=== PATIENT | female | born 1990 | race Caucasian/White ===

== ENCOUNTER 2016-08-09 18:25 | Emergency (ER) | payer OTHER ==
[2016-08-09 18:32] VITALS: TEMP 97.8; BMI 22.8
[2016-08-09] MEDS ORDERED: methylPREDNISolone NA SUCC 125 MG/2 ML VIAL ONE (18:35)
[2016-08-09] MEDS ORDERED: FAMOTIDINE 20 MG/50 ML IVPB 50 ML IVPB ONE ×2 (18:35→18:49)
[2016-08-09] MEDS ORDERED: ALBUTEROL SO4 2.5/IPRATROPIUM 0.5 INH SOL 3 ML VIAL.NEB. NEB ONE (18:39)
[2016-08-09] MEDS ORDERED: EPINEPHrine/PF 1 MG/1 ML (1:1,000) AMPULE ONE ×2 (18:40→19:34)
[2016-08-09] MEDS ORDERED: methylPREDNISolone NA SUCC 125 MG/2 ML VIAL IVPB ONE (18:48)
[2016-08-09] MEDS ORDERED: EPINEPHrine/PF 1 MG/1 ML (1:1,000) AMPULE SQ ONE ×2 (18:50→19:37)
--- NOTE | 2016-08-09 21:27 | PDOC ---
History of Present Illness <Kristan Mosher - Last Filed: 08/09/16 21:49> - History of Present Illness Initial Comments: 08/09/16 23:00 The patient is a 25 year old female, with a significant past medical history of asthma, UTI, and kidney stones, who presents to the emergency department with throat irritation, swollen eyes, and diffuse itchiness starting at 6PM tonight. The patient states she had an allergy test done and was found to be allergic to tomatoes. She reports eating pasta at a restaurant and hour before her symptoms began, but was unaware if it contained tomatoes. She reports having an epipen at home, however, it was not on her person when the symptoms progressed so she presents to the ED. She reports having throat irritation and difficulty swallowing at this time. She presents with diffuse hives. She states her last episode with her allergy was about a year ago. She denies chest pain, shortness of breath, headache and dizziness. She denies fever, chills, nausea, vomit, diarrhea and constipation. She denies dysuria, frequency, urgency and hematuria. Allergies: tomatoes Past surgical history: , laproscopic ovarian cyst, D&C Social history: denies toxic habits PCP - Dr. Kenyon Wright ([phone]) <Rain Hernandez - Last Filed: 08/09/16 23:02> - General Chief Complaint: Allergic Reaction Stated Complaint: ALLERGIC REACTION Time Seen by Provider: 08/09/16 18:48 Past History - Past Medical History Asthma: Yes - Surgical History Abdominal Surgery: Yes - Reproductive History (#): 2 Para: 1 Cervical CA: No Dysfunctional Uterine Bleeding: No Ectopic : No Endometrial CA: No Polycystic Ovaries: No Therapeutic (s) & number: No Tubal Ligation: No Spontaneous : 1 - Immunization History Immunization Up to Date: Yes - Psycho/Social/Smoking Cessation Hx Anxiety: No Suicidal Ideation: No Smoking Status: No Smoking History: Never smoked Have you smoked in the past 12 months: No Number of Cigarettes Smoked Daily: 0 Cigars Per Day: 0 Information on smoking cessation initiated: No Hx Alcohol Use: No Drug/Substance Use Hx: No Substance Use Type: None <Kristan Mosher - Last Filed: 08/09/16 21:49> <Rain Hernandez - Last Filed: 08/09/16 23:02> - Past Medical History Allergies/Adverse Reactions: Allergies Allergy/AdvReac Type Severity Reaction Status Date / Time tomato Allergy Verified 08/09/16 18:27 Home Medications: Ambulatory Orders Topiramate [Topamax] 75 mg PO BID 12/19/15 Diphenhydramine HCl [Benadryl -] 25 mg PO Q6H PRN #20 capsule 08/09/16 Epinephrine [Epipen 2-Indra] 0.3 mg IJ ASDIR #1 kit 08/09/16 Prednisone [Deltasone -] 10 mg PO DAILY #3 tablet 08/09/16 Review of Systems - Review of Systems Able to Perform ROS?: Yes Comments:: 08/09/16 23:00 CONSTITUTIONAL: Absent: fever, chills, diaphoresis, generalized weakness, malaise, loss of appetite HEENT: (+) throat irritation, difficulty swallowing. Absent: rhinorrhea, nasal congestion, throat swelling, mouth swelling, ear pain, eye pain, visual Changes CARDIOVASCULAR: Absent: chest pain, syncope, palpitations, irregular heart rate, lightheadedness , peripheral edema RESPIRATORY: Absent: cough, shortness of breath, dyspnea with exertion, orthopnea, wheezing, stridor, hemoptysis GASTROINTESTINAL: Absent: abdominal pain, abdominal distension, nausea, vomiting, diarrhea, constipation, melena, hematochezia GENITOURINARY: Absent: dysuria, frequency, urgency, hesitancy, hematuria, flank pain, genital pain MUSCULOSKELETAL: Absent: myalgia, arthralgia, joint swelling SKIN: (+) rash, itching, Absent: pallor HEMATOLOGIC/IMMUNOLOGIC: Absent: easy bleeding, easy bruising, lymphadenopathy, frequent infections ENDOCRINE: Absent: unexplained weight gain, unexplained weight loss, heat intolerance, cold intolerance NEUROLOGIC: Absent: headache, focal weakness or paresthesias, dizziness, unsteady gait, seizure, mental status changes, bladder or bowel incontinence PSYCHIATRIC: Absent: anxiety, depression, suicidal or homicidal ideation, hallucinations. <Rain Hernandez - Last Filed: 08/09/16 23:02> *Physical Exam - Vital Signs Last Vital Signs Temp Pulse Resp BP Pulse Ox 97.8 F 109 H 18 112/67 100 08/09/16 18:28 08/09/16 19:25 08/09/16 19:25 08/09/16 19:25 08/09/16 19:25 <Kristan Mosher - Last Filed: 08/09/16 21:49> - Vital Signs Last Vital Signs Temp Pulse Resp BP Pulse Ox 97.8 F 113 H 18 119/66 98 08/09/16 18:28 08/09/16 21:46 08/09/16 21:46 08/09/16 21:46 08/09/16 21:46 - Physical Exam Comments: 08/09/16 23:01 GENERAL: Well developed, well nourished. Awake and alert. No acute distress. HEENT: (+)Uvula is mildly edematous, however. there is no airway compromise. Normocephalic, atraumatic. PERRLA, EOMI. No conjunctival pallor. Sclera are non- icteric. Moist mucous membranes. Oropharynx is clear. NECK: Supple. Full ROM. No JVD. Carotid pulses 2+ and symmetric, without bruits. No thyromegaly. No lymphadenopathy. CARDIOVASCULAR: Regular rate and rhythm. No murmurs, rubs, or gallops. Distal pulses are 2+ and symmetric. PULMONARY: No evidence of respiratory distress. Lungs clear to auscultation bilaterally. No wheezing, rales or rhonchi. ABDOMINAL: Soft. Non-tender. Non-distended. No rebound or guarding. No organomegaly. Normoactive bowel sounds. MUSCULOSKELETAL Normal range of motion at all joints. No bony deformities or tenderness. No CVA tenderness. EXTREMITIES: No cyanosis. No clubbing. No edema. No calf tenderness. SKIN: (+) diffuse hives. Warm and dry. Normal capillary refill. No jaundice. NEUROLOGICAL: Alert, awake, appropriate. Cranial nerves 2-12 intact. Normoreflexic in the upper and lower extremities. Normal speech. Toes are down-going bilaterally. Gait is normal without ataxia. PSYCHIATRIC: Cooperative. Good eye contact. Appropriate mood and affect. <Rain Hernandez - Last Filed: 08/09/16 23:02> ED Treatment Course - Medications Given in the ED: ED Medications Discontinued Medications Generic Name Dose Route Start Last Admin Trade Name Freq PRN Reason Stop Dose Admin Diphenhydramine HCl 25 mg 08/09/16 18:49 08/09/16 18:49 Benadryl Injection - IVPB 08/09/16 18:50 25 mg NOW ONE Administration Epinephrine HCl 566.99 mcg 08/09/16 18:50 08/09/16 18:50 Epinephrine 1:1000 P/F - SQ 08/09/16 18:51 566.99 mcg ONCE ONE Administration Epinephrine HCl 566.99 mcg 08/09/16 19:37 08/09/16 19:39 Epinephrine 1:1000 P/F - SQ 08/09/16 19:38 566.99 mcg ONCE ONE Administration Famotidine/Sodium Chloride 50 mls @ 100 mls/hr 08/09/16 18:49 08/09/16 18:49 Pepcid 20 Mg Premixed Ivpb - IVPB 08/09/16 19:18 100 mls/hr ONCE ONE Administration Methylprednisolone Sodium Succinate 125 mg 08/09/16 18:48 08/09/16 18:49 Solu-Medrol - IVPB 08/09/16 18:49 125 mg NOW ONE Administration <Kristan Mosher - Last Filed: 08/09/16 21:49> - Medications Given in the ED: ED Medications Discontinued Medications Generic Name Dose Route Start Last Admin Trade Name Freq PRN Reason Stop Dose Admin Diphenhydramine HCl 25 mg 08/09/16 18:49 08/09/16 18:49 Benadryl Injection - IVPB 08/09/16 18:50 25 mg NOW ONE Administration Epinephrine HCl 566.99 mcg 08/09/16 18:50 08/09/16 18:50 Epinephrine 1:1000 P/F - SQ 08/09/16 18:51 566.99 mcg ONCE ONE Administration Epinephrine HCl 566.99 mcg 08/09/16 19:37 08/09/16 19:39 Epinephrine 1:1000 P/F - SQ 08/09/16 19:38 566.99 mcg ONCE ONE Administration Famotidine/Sodium Chloride 50 mls @ 100 mls/hr 08/09/16 18:49 08/09/16 18:49 Pepcid 20 Mg Premixed Ivpb - IVPB 08/09/16 19:18 100 mls/hr ONCE ONE Administration Methylprednisolone Sodium Succinate 125 mg 08/09/16 18:48 08/09/16 18:49 Solu-Medrol - IVPB 08/09/16 18:49 125 mg NOW ONE Administration <Rain Hernandez - Last Filed: 08/09/16 23:02> *DC/Admit/Observation/Transfer <Kristan Mosher - Last Filed: 08/09/16 21:49> - Attestations Scribe Attestion: 08/09/16 23:02 Documentation prepared by Rain Hernandez, acting as outside medical sales representative for Kristan Mosher MD <Rain Hernandez - Last Filed: 08/09/16 23:02> Diagnosis at time of Disposition: Bronchospasm Allergy Qualifiers: Encounter type: initial encounter Qualified Code(s): T78.40XA - Allergy, unspecified, initial encounter - Discharge Dispostion Disposition: HOME Condition at time of disposition: Stable - Prescriptions Prescriptions: Diphenhydramine HCl [Benadryl -] 25 mg PO Q6H PRN #20 capsule PRN Reason: For Itching Prednisone [Deltasone -] 10 mg PO DAILY #3 tablet Epinephrine [Epipen 2-Indra] 0.3 mg IJ ASDIR #1 kit - Referrals Referrals: Kenyon Wright [Primary Care Provider] - - Patient Instructions Printed Discharge Instructions: DI for Food Allergy Additional Instructions: Please medicinal plant picker your prescriptions at [facility] Return for any worsening symptoms
[2016-08-09 21:47] VITALS: BP 119/66; PULSE 113
== END 2016-08-09 21:54 | disposition home or self-care (01) ==
LOC: JER 18:25
PROC: 3E033GC Introduction of Other Therapeutic Substance into Peripheral Vein, Percutaneous Approach (ICD-10-PCS; principal; 2016-08-09)
PROC: 3E0333Z Introduction of Anti-inflammatory into Peripheral Vein, Percutaneous Approach (ICD-10-PCS; 2016-08-09)
PROC: 3E023GC Introduction of Other Therapeutic Substance into Muscle, Percutaneous Approach (ICD-10-PCS; 2016-08-09)
DX: L27.2 Dermatitis due to ingested food (principal); L50.0 Allergic urticaria; J98.01 Acute bronchospasm
CPT/HCPCS: 96365; 96372; 96375; 99282-25

== ENCOUNTER 2017-05-11 13:05 | Emergency (ER) | payer OTHER ==
[2017-05-11 13:12] VITALS: TEMP 98.9; BMI 25.9
--- NOTE | 2017-05-11 14:31 | PDOC ---
History of Present Illness - General History Source: Patient Exam Limitations: No Limitations - History of Present Illness Initial Comments: 05/11/17 14:44 The patient is a 26 year old female, with a significant past medical history of Asthma, Migraines who presents to the emergency department with headache for the past 3 days. Patient reports gradual onset L parietal headache, with associated vomiting. Patient reports multiple episodes of vomiting (nonbilious, nonbloody). Patient reports taking Topamax, Advil, Motrin with no relief. Patient denies thunderclap headache, weakness, numbness, tingling. Patient visited today and was sent in for further evaluation. She denies chest pain or dizziness. She denies fever, chills, abdominal pain, nausea, vomit, diarrhea or constipation. She denies dysuria, frequency, urgency or hematuria. Patient denies sick contacts or recent travel. Allergies: Tomato Past surgical history: C section Social history: None PCP: Dr. Everett <Yodit Shaw - Last Filed: 05/11/17 14:44> <Marisa Arguello - Last Filed: 05/11/17 16:01> - General Chief Complaint: Migraine Headache Stated Complaint: HEADACHE Time Seen by Provider: 05/11/17 14:29 Past History <Yodit Shaw - Last Filed: 05/11/17 14:44> - Past Medical History Asthma: Yes COPD: No Other medical history: MIGRAINES - Surgical History Abdominal Surgery: Yes - Reproductive History (#): 2 Para: 1 Cervical CA: No Dysfunctional Uterine Bleeding: No Ectopic : No Endometrial CA: No Polycystic Ovaries: No Therapeutic (s) & number: No Tubal Ligation: No Spontaneous : 1 - Immunization History Immunization Up to Date: Yes - Suicide/Smoking/Psychosocial Hx Smoking Status: No Smoking History: Never smoked Have you smoked in the past 12 months: No Number of Cigarettes Smoked Daily: 0 Cigars Per Day: 0 Hx Alcohol Use: No Drug/Substance Use Hx: No Substance Use Type: None <Marisa Arguello - Last Filed: 05/11/17 16:01> - Past Medical History Allergies/Adverse Reactions: Allergies Allergy/AdvReac Type Severity Reaction Status Date / Time No Known Drug Allergies Allergy Verified 05/11/17 14:41 tomato Allergy Verified 05/11/17 13:12 Home Medications: Ambulatory Orders Topiramate [Topamax] 100 mg PO PRN PRN 05/11/17 Review of Systems - Review of Systems Able to Perform ROS?: Yes Comments:: 05/11/17 14:44 GENERAL/CONSTITUTIONAL: No fever or chills. No weakness. HEAD, EYES, EARS, NOSE AND THROAT: No change in vision. No ear pain or discharge. No sore throat. CARDIOVASCULAR: No chest pain or shortness of breath. RESPIRATORY: No cough, wheezing, or hemoptysis. GASTROINTESTINAL: No nausea, vomiting, diarrhea or constipation. GENITOURINARY: No dysuria, frequency, or change in urination. MUSCULOSKELETAL: No joint or muscle swelling or pain. No neck or back pain. SKIN: No rash NEUROLOGIC: + headache. No vertigo, loss of consciousness, or change in strength /sensation. ENDOCRINE: No increased thirst. No abnormal weight change. HEMATOLOGIC/LYMPHATIC: No anemia, easy bleeding, or history of blood clots. ALLERGIC/IMMUNOLOGIC: No hives or skin allergy. <Yodit Shaw - Last Filed: 05/11/17 14:44> *Physical Exam - Vital Signs Last Vital Signs Temp Pulse Resp BP Pulse Ox 98.9 F 92 H 18 113/76 98 05/11/17 13:10 05/11/17 13:10 05/11/17 13:10 05/11/17 13:10 05/11/17 13:10 - Physical Exam Comments: 05/11/17 14:44 GENERAL: Awake, alert, and fully oriented, in no acute distress HEAD: No signs of trauma EYES: PERRLA, EOMI, sclera anicteric, conjunctiva clear ENT: Auricles normal inspection, hearing grossly normal, nares patent, oropharynx clear without exudates. Moist mucosa NECK: Normal ROM, supple, no lymphadenopathy, JVD, or masses LUNGS: Breath sounds equal, clear to auscultation bilaterally. No wheezes, and no crackles HEART: Regular rate and rhythm, normal S1 and S2, no murmurs, rubs or gallops ABDOMEN: Soft, nontender, normoactive bowel sounds. No guarding, no rebound. No masses EXTREMITIES: Normal range of motion, no edema. No clubbing or cyanosis. No cords, erythema, or tenderness NEUROLOGICAL: Cranial nerves II through XII grossly intact. Normal speech, normal gait SKIN: Warm, Dry, normal turgor, no rashes or lesions noted. <Yodit Shaw - Last Filed: 05/11/17 14:44> - Vital Signs Last Vital Signs Temp Pulse Resp BP Pulse Ox 98.9 F 92 H 18 113/76 98 05/11/17 13:10 05/11/17 13:10 05/11/17 13:10 05/11/17 13:10 05/11/17 13:10 <Marisa Arguello - Last Filed: 05/11/17 16:01> ED Treatment Course - LABORATORY CBC & Chemistry Diagram: 05/11/17 14:55 05/11/17 14:55 <Marisa Arguello - Last Filed: 05/11/17 16:01> Medical Decision Making - Medical Decision Making 05/11/17 15:58 a/p: pt with hx of migraines with migraine unresponsive to topamax -suspect migrane oliver, had IUD removed today -no neuro deficit -no meningeal signs -will check labs and give iv meds for migraine -will monitor and reassess 05/11/17 15:58 pt states oliver resolved. feeling better. blood in urine from having IUD removed today. pt has appt with neurology for next monday. discussed all reasons to return to the ED and need for follow up. answered all questions. pt stable for d/c to home. <Marisa Arguello - Last Filed: 05/11/17 16:01> *DC/Admit/Observation/Transfer - Attestations Scribe Attestion: 05/11/17 14:45 Documentation prepared by Yodit Shaw, acting as biomedical engineering supervisor for Marisa Arguello DO <Yodit hSaw - Last Filed: 05/11/17 14:44> - Discharge Dispostion Admit: No - Attestations Physician Attestion: 05/11/17 16:01 I, Dr. Marisa Arguello DO, attest that this document has been prepared under my direction and personally reviewed by me in its entirety. I further attest, that it accurately reflects all work, treatment, procedures and medical decision -making performed by me. <Marisa Arguello - Last Filed: 05/11/17 16:01> Diagnosis at time of Disposition: Migraine - Discharge Dispostion Disposition: HOME Condition at time of disposition: Stable - Referrals Referrals: Kerri Evreett MD [Primary Care Provider] - - Patient Instructions Printed Discharge Instructions: DI for Headache Additional Instructions: Please keep your appointment with the neurologist. Please follow up with your PMD. Please return to the ED with any further complaints.
[2017-05-11] MEDS ORDERED: METOCLOPRAMIDE HCL INJECTION 10 MG/2 ML VIAL IVPUSH ONE (14:41)
[2017-05-11] MEDS ORDERED: SODIUM CHLORIDE 0.9% 1000 ML INFUS.BAG IV ONE (14:41)
[2017-05-11] MEDS ORDERED: METOCLOPRAMIDE HCL INJECTION 10 MG/2 ML VIAL ONE (14:59)
[2017-05-11 15:14] LABS: URINE APPEARANCE SLCLOUDY; URINE BILIRUBIN NEGATIVE (NEGATIVE); URINE BLOOD 3+ (NEGATIVE); URINE COLOR YELLOW; URINE GLUCOSE (UA) NEGATIVE (NEGATIVE); URINE KETONE NEGATIVE (NEGATIVE); URINE NITRITE NEGATIVE (NEGATIVE); URINE UROBILINOGEN NEGATIVE mg/dL (0.2-1.0)
[2017-05-11 15:15] LABS: URINE PROTEIN 1+ (NEGATIVE)
[2017-05-11 15:18] LABS: ALBUMIN 4.1 g/dl (3.4-5.0); ALK PHOS 79 U/L (45-117); ANION GAP 9 (8-16); BILIRUBIN,TOTAL 0.4 mg/dL (0.2-1.0); CALCIUM 8.8 mg/dL (8.5-10.1); CO2 26 mmol/L (21-32); CREATININE 0.6 mg/dL (0.55-1.02); GLUCOSE,RANDOM 98 mg/dL (74-106); SGPT/ALT 24 U/L (12-78); TOT PROT 7.7 g/dl (6.4-8.2)
[2017-05-11 15:20] LABS: SGOT/AST 25 U/L (15-37)
[2017-05-11 15:25] LABS: BASOPHIL 0.3 % (0-2.0); EOSINOPHIL 1.9 % (0-4.5); MCH 32.1 pg (25.7-33.7); MCHC 34.9 g/dl (32.0-36.0); MEAN CELL VOLUME 92.1 fl (80-96); MEAN PLT VOLUME 8.3 fl (7.5-11.1); NEUTROPHILS 58.9 % (42.8-82.8); PLATELET COUNT 241 K/MM3 (134-434); RDW 11.8 % (11.6-15.6); WHITE BLOOD COUNT 5.4 K/mm3 (4.0-10.0)
[2017-05-11 15:33] LABS: URINE MUCUS RARE; URINE RBC 156 /hpf (0-3); URINE WBC 9 /hpf (3-5)
[2017-05-11 16:17] VITALS: BP 117/71; PULSE 88
[2017-05-11 18:13] LABS: URINE LEUK ESTERASE Negative (NEGATIVE)
== END 2017-05-11 16:17 | disposition home or self-care (01) ==
LOC: JER 13:05
PROC: 3E033GC Introduction of Other Therapeutic Substance into Peripheral Vein, Percutaneous Approach (ICD-10-PCS; principal; 2017-05-11)
DX: G43.909 Migraine, unspecified, not intractable, without status migrainosus (principal); J45.909 Unspecified asthma, uncomplicated
CPT/HCPCS: 36415; 80053; 81003; 81015; 84703; 85025; 99284-25

== ENCOUNTER 2017-08-02 13:38 | Emergency (ER) | payer OTHER ==
[2017-08-02 13:53] VITALS: BMI 28.3
--- NOTE | 2017-08-02 15:44 | PDOC ---
History of Present Illness - General Chief Complaint: Pain Stated Complaint: LOWER PELVIC PAIN () Time Seen by Provider: 08/02/17 15:43 History Source: Patient Exam Limitations: No Limitations - History of Present Illness Initial Comments: 08/02/17 16:33 Patient is a 26-year-old female , unsure of last menses, who presents to the emergency department today complaining of lower pelvic pain. She states that she recently learned she was . She is unsure how far along she is. She states that she has intermittent pain for approximately one day. Tylenol has helped to relieve the pain, but the pain comes back. Denies fevers, chills, nausea, vomiting, diarrhea, constipation, vaginal bleeding, hematuria, dysuria, frequency. Past History - Travel Traveled outside of the country in the last 30 days: No Close contact w/someone who was outside of country & ill: No - Past Medical History Allergies/Adverse Reactions: Allergies Allergy/AdvReac Type Severity Reaction Status Date / Time No Known Drug Allergies Allergy Verified 08/02/17 13:53 tomato Allergy Verified 08/02/17 13:53 Home Medications: Ambulatory Orders Amitriptyline HCl 100 mg PO DAILY 08/02/17 Cyclobenzaprine HCl 5 mg PO HS 08/02/17 Asthma: Yes COPD: No - Surgical History Abdominal Surgery: Yes - Reproductive History (#): 2 Para: 1 Cervical CA: No Dysfunctional Uterine Bleeding: No Ectopic : No Endometrial CA: No Polycystic Ovaries: No Therapeutic (s) & number: No Tubal Ligation: No Spontaneous : 1 - Immunization History Immunization Up to Date: Yes - Suicide/Smoking/Psychosocial Hx Smoking Status: No Smoking History: Never smoked Have you smoked in the past 12 months: No Number of Cigarettes Smoked Daily: 0 Cigars Per Day: 0 Hx Alcohol Use: No Drug/Substance Use Hx: No Substance Use Type: None Review of Systems - Review of Systems Able to Perform ROS?: Yes Comments:: 08/02/17 18:35 CONSTITUTIONAL: Absent: fever, chills, diaphoresis, generalized weakness, malaise, loss of appetite HEENT: Absent: rhinorrhea, nasal congestion, throat pain, throat swelling, difficulty swallowing, mouth swelling, ear pain, eye pain, visual Changes CARDIOVASCULAR: Absent: chest pain, loss of consciousness, palpitations, irregular heart rate, peripheral edema RESPIRATORY: Absent: cough, shortness of breath, dyspnea with exertion, orthopnea, wheezing, stridor, hemoptysis GASTROINTESTINAL: Absent: abdominal pain, abdominal distension, nausea, vomiting, diarrhea, constipation, melena, hematochezia GENITOURINARY: Present: pelvic pain Absent: dysuria, frequency, urgency, hesitancy, hematuria, flank pain, genital pain MUSCULOSKELETAL: Absent: myalgia, arthralgia, joint swelling SKIN: Absent: rash, itching, pallor HEMATOLOGIC/IMMUNOLOGIC: Absent: easy bleeding, easy bruising, lymphadenopathy, frequent infections ENDOCRINE: Absent: unexplained weight gain, unexplained weight loss, heat intolerance, cold intolerance NEUROLOGIC: Absent: headache, focal weakness or paresthesias, dizziness, unsteady gait, seizure, mental status changes, bladder or bowel incontinence PSYCHIATRIC: Absent: anxiety, depression, suicidal or homicidal ideation, hallucinations. Is the patient limited Macedonian proficient: No *Physical Exam - Vital Signs Last Vital Signs Temp Pulse Resp BP Pulse Ox 98.8 F 115 H 18 111/72 98 08/02/17 13:50 08/02/17 13:50 08/02/17 13:50 08/02/17 13:50 08/02/17 13:50 - Physical Exam Comments: 08/02/17 18:36 GENERAL: Well developed, well nourished. Awake and alert. No acute distress. HEENT: Normocephalic, atraumatic. PERRLA, EOMI. No conjunctival pallor. Sclera are non- icteric. Moist mucous membranes. Oropharynx is clear. NECK: Supple. Full ROM. No JVD. Carotid pulses 2+ and symmetric, without bruits. No thyromegaly. No lymphadenopathy. CARDIOVASCULAR: Regular rate and rhythm. No murmurs, rubs, or gallops. Distal pulses are 2+ and symmetric. PULMONARY: No evidence of respiratory distress. Lungs clear to auscultation bilaterally. No wheezing, rales or rhonchi. ABDOMINAL: TTP R lower quadrant/pelvic region. Soft. Non-tender. Non-distended. No rebound or guarding. No organomegaly. Normoactive bowel sounds. EXAM: Normal external genitalia no rashes or lesion. Internal: cervical os closed, no CMT, no adenexal tenderness. MUSCULOSKELETAL Normal range of motion at all joints. No bony deformities or tenderness. No CVA tenderness. EXTREMITIES: No cyanosis. No clubbing. No edema. No calf tenderness. SKIN: Warm and dry. Normal capillary refill. No rashes. No jaundice. NEUROLOGICAL: Alert, awake, appropriate. Cranial nerves 2-12 intact. No deficits to light touch and temperature in face, upper extremities and lower extremities. No motor deficits in the in face, upper extremities and lower extremities. Normoreflexic in the upper and lower extremities. Normal speech. Toes are down- going bilaterally. Gait is normal without ataxia. PSYCHIATRIC: Cooperative. Good eye contact. Appropriate mood and affect. ED Treatment Course - LABORATORY CBC & Chemistry Diagram: 08/02/17 16:00 08/02/17 16:00 Medical Decision Making - Medical Decision Making 08/02/17 16:35 Patient is a 26-year-old female with no past medical history G 2, P1, who presents emergency Department with 1 day of pelvic pain. We will confirm at this time. Basic labs ordered including urine to rule out infection. Tylenol for pain 08/02/17 17:29 Urine with trace leuk esterase. No leukocytosis. Waiting for beta hCG for ultrasound. 08/02/17 18:37 Sign out given to Natasha Miller NP patient is currently in ultrasound and pending disposition based on results. *DC/Admit/Observation/Transfer Diagnosis at time of Disposition: Abdominal pain affecting Qualifiers: Weeks of gestation: less than 8 weeks Qualified Code(s): Z3A.01 - Less than 8 weeks gestation of - Discharge Dispostion Disposition: HOME Condition at time of disposition: Good Admit: No - Referrals Referrals: Kerri Everett MD [Primary Care Provider] - - Patient Instructions Printed Discharge Instructions: DI for Abdominal Pain -- Early Additional Instructions: You are approximately 6 weeks based on your exam findings today. Please follow up with your [facility] this week. You may have tylenol as needed for pain. Drink plenty of fluids. Return to the ED if you have worsening pain, fevers, chills, or any changes in your symptoms - Post Discharge Activity Forms/Work/School Notes: Back to Work
[2017-08-02 16:43] LABS: BASO % 0.4 % (0-2.0); EOS % 1.6 % (0-4.5); HEMATOCRIT 38.7 % (32.4-45.2); HEMOGLOBIN 13.1 GM/dL (10.7-15.3); LYMPH % 24.5 % (8-40); MCHC 33.8 g/dl (32.0-36.0); MEAN CELL VOLUME 94.5 fl (80-96); MEAN PLT VOLUME 7.8 fl (7.5-11.1); MONO % 5.2 % (3.8-10.2); NEUT % 68.3 % (42.8-82.8); PLATELET COUNT 237 K/MM3 (134-434); RBC 4.09 M/mm3 (3.60-5.2); RDW 12.2 % (11.6-15.6); WHITE BLOOD COUNT 6.6 K/mm3 (4.0-10.0)
[2017-08-02 16:56] LABS: URINE APPEARANCE CLEAR; URINE BILIRUBIN NEGATIVE (NEGATIVE); URINE BLOOD NEGATIVE (NEGATIVE); URINE COLOR YELLOW; URINE GLUCOSE (UA) NEGATIVE (NEGATIVE); URINE KETONE NEGATIVE (NEGATIVE); URINE LEUK ESTERASE TRACE (NEGATIVE); URINE NITRITE NEGATIVE (NEGATIVE); URINE PROTEIN NEGATIVE (NEGATIVE)
[2017-08-02 16:59] LABS: INR 1.11 (0.82-1.09); PROTHROMBIN TIME (PATIENT) 12.5 SEC (9.98-11.88)
[2017-08-02 17:05] LABS: EPI CELLS FEW /HPF (FEW); URINE MUCUS MANY
[2017-08-02 17:10] LABS: ALBUMIN 3.6 g/dl (3.4-5.0); ANION GAP 9 (8-16); BLOOD UREA NITROGEN 12 mg/dL (7-18); CALCIUM 8.8 mg/dL (8.5-10.1); CHLORIDE 102 mmol/L (98-107); CO2 27 mmol/L (21-32); CREATININE 0.6 mg/dL (0.55-1.02); GLUCOSE,RANDOM 85 mg/dL (74-106); POTASSIUM 3.9 mmol/L (3.5-5.1); SGOT/AST 16 U/L (15-37); SGPT/ALT 29 U/L (12-78); SODIUM 138 mmol/L (136-145)
[2017-08-02 17:29] LABS: ALK PHOS 69 U/L (45-117); BILIRUBIN,TOTAL 0.2 mg/dL (0.2-1.0)
[2017-08-02 19:26] VITALS: BP 118/73; PULSE 89; TEMP 98.7
== END 2017-08-02 19:20 | disposition home or self-care (01) ==
LOC: SUPCPDRO 13:38 → JER 13:38
DX: O26.891 Other specified pregnancy related conditions, first trimester (principal); R10.2 Pelvic and perineal pain; Z3A.01 Less than 8 weeks gestation of pregnancy
CPT/HCPCS: 36415; 76801-TC; 80053; 81003; 81015; 84702; 85025; 85610; 87086; 99283-25

== ENCOUNTER 2017-09-15 09:06 | Emergency (ER) | payer OTHER ==
[2017-09-15 09:11] VITALS: TEMP 98; BMI 29.8
--- NOTE | 2017-09-15 10:09 | PDOC ---
History of Present Illness - General History Source: Patient Exam Limitations: No Limitations - History of Present Illness Initial Comments: 09/15/17 10:55 The patient is a 26 year old female who is approximately 13 weeks who presents to the ED complaining of diffuse upper abdominal pain that began last night. She describes her pain as sharp, radiating to the back, worse after eating, and ranked 10/10 in severity. She also reports nonbloody, nonbilious vomiting this morning, but states this is normal for her secondary to her morning sickness. No fever or chills. No constipation or diarrhea. No urinary complaints. No abnormal vaginal bleeding or discharge. <Ynay Marrufo - Last Filed: 09/15/17 14:22> <Awa Mccarthy - Last Filed: 09/15/17 16:52> - General Chief Complaint: Pain, Acute Stated Complaint: ABD PAIN, (13 WKS ) Time Seen by Provider: 09/15/17 09:43 Past History <Yany Marrufo - Last Filed: 09/15/17 14:22> - Past Medical History Asthma: Yes COPD: No - Surgical History Abdominal Surgery: Yes - Reproductive History (#): 2 Para: 1 Cervical CA: No Dysfunctional Uterine Bleeding: No Ectopic : No Endometrial CA: No Polycystic Ovaries: No Therapeutic (s) & number: No Tubal Ligation: No Spontaneous : 1 - Immunization History Immunization Up to Date: Yes - Suicide/Smoking/Psychosocial Hx Smoking Status: No Smoking History: Never smoked Have you smoked in the past 12 months: No Number of Cigarettes Smoked Daily: 0 Cigars Per Day: 0 Information on smoking cessation initiated: No Hx Alcohol Use: No Drug/Substance Use Hx: No Substance Use Type: None <Awa Mccarthy - Last Filed: 09/15/17 16:52> - Past Medical History Allergies/Adverse Reactions: Allergies Allergy/AdvReac Type Severity Reaction Status Date / Time No Known Drug Allergies Allergy Verified 09/15/17 09:07 tomato Allergy Verified 09/15/17 09:07 Home Medications: Ambulatory Orders Amitriptyline HCl 100 mg PO DAILY 08/02/17 Cyclobenzaprine HCl 5 mg PO HS 08/02/17 Review of Systems - Review of Systems Able to Perform ROS?: Yes Comments:: 09/15/17 10:58 GENERAL/CONSTITUTIONAL: No fever or chills. No weakness. HEAD, EYES, EARS, NOSE AND THROAT: No change in vision. No ear pain or discharge. No sore throat. CARDIOVASCULAR: No chest pain or shortness of breath. RESPIRATORY: No cough, wheezing, or hemoptysis. GASTROINTESTINAL: +upper abdominal pain. +Vomiting. No diarrhea or constipation. GENITOURINARY: No dysuria, frequency, or change in urination. MUSCULOSKELETAL: No joint or muscle swelling or pain. No neck or back pain. SKIN: No rash NEUROLOGIC: No headache, vertigo, loss of consciousness, or change in strength/ sensation. ENDOCRINE: No increased thirst. No abnormal weight change. HEMATOLOGIC/LYMPHATIC: No anemia, easy bleeding, or history of blood clots. ALLERGIC/IMMUNOLOGIC: No hives or skin allergy. <Yany Marrufo - Last Filed: 09/15/17 14:22> *Physical Exam - Vital Signs Last Vital Signs Temp Pulse Resp BP Pulse Ox 98.0 F 91 H 16 125/72 100 09/15/17 09:08 09/15/17 09:08 09/15/17 09:08 09/15/17 09:08 09/15/17 09:08 - Physical Exam Comments: 09/15/17 10:58 GENERAL: Awake, alert, and fully oriented, in no acute distress HEAD: No signs of trauma EYES: PERRLA, EOMI, sclera anicteric, conjunctiva clear ENT: Auricles normal inspection, nares patent. Dry mm. NECK: Normal ROM, supple, no JVD, or masses LUNGS: Breath sounds equal, clear to auscultation bilaterally. No wheezes, and no crackles HEART: Regular rate and rhythm, normal S1 and S2, no murmurs, rubs or gallops ABDOMEN: Bilateral upper quadrant tenderness. Soft, normoactive bowel sounds. No guarding, no rebound. No masses EXTREMITIES: Normal range of motion, no edema. No clubbing or cyanosis. No cords, erythema, or tenderness NEUROLOGICAL: Alert and oriented x 3. Moves all extremities. Face is symmetric. SKIN: Warm, Dry, normal turgor, no rashes or lesions noted. <Yany Marrufo - Last Filed: 09/15/17 14:22> - Vital Signs Last Vital Signs Temp Pulse Resp BP Pulse Ox 98.0 F 91 H 16 125/72 100 09/15/17 09:08 09/15/17 09:08 09/15/17 09:08 09/15/17 09:08 09/15/17 09:08 <Awa Mccarthy - Last Filed: 09/15/17 16:52> ED Treatment Course - LABORATORY CBC & Chemistry Diagram: 09/15/17 11:20 09/15/17 11:20 <Yany Marrufo - Last Filed: 09/15/17 14:22> - LABORATORY CBC & Chemistry Diagram: 09/15/17 11:20 09/15/17 11:20 <Awa Mccarthy - Last Filed: 09/15/17 16:52> Medical Decision Making - Medical Decision Making 09/15/17 14:20 Abdominal US, reviewed and interpreted by Dr. Moody, demonstrates no evidence of cholelithiasis or acute abdominal pathology. 09/15/17 14:22 Transvaginal US, read and interpreted by Dr. Lyn, demonstrates a single live intrauterine with average sonographic gestational age of 13 weeks. heart rate is 152 bpm. <Yany Marrufo - Last Filed: 09/15/17 14:22> - Medical Decision Making 09/15/17 11:12 Pt states she was feeling sweaty on initial evaluation. Suspect hypoglycemia as she has not eaten much this morning. I placed an IV and started D5NS. Await labs , UA, and ultrasounds. 09/15/17 14:23 Results d/w patient. No acute pain at present. Counseled her to return if her symptoms persist or worsen. <Awa Mccarthy - Last Filed: 09/15/17 16:52> *DC/Admit/Observation/Transfer - Attestations Scribe Attestion: 09/15/17 11:00 Documentation prepared by Yany Marrufo, acting as medical sales for Awa Mccarthy MD. <Yany Marrufo - Last Filed: 09/15/17 14:22> - Discharge Dispostion Admit: No <Awa Mccarthy - Last Filed: 09/15/17 16:52> Diagnosis at time of Disposition: Abdominal pain affecting - Discharge Dispostion Disposition: HOME Condition at time of disposition: Stable - Referrals Referrals: Kerri Everett MD [Primary Care Provider] - - Patient Instructions Printed Discharge Instructions: DI for -- Discomforts and Remedies, DI for Abdominal Pain -- Early - Post Discharge Activity Forms/Work/School Notes: Back to School
[2017-09-15 11:09] VITALS: BP 125/72; PULSE 90
[2017-09-15] MEDS ORDERED: DEXTROSE 5%-NORMAL SALINE 1,000 ML IV ONE (11:12)
[2017-09-15 11:18] LABS: URINE APPEARANCE CLEAR; URINE BILIRUBIN NEGATIVE (NEGATIVE); URINE BLOOD NEGATIVE (NEGATIVE); URINE COLOR LTYELLOW; URINE GLUCOSE (UA) NEGATIVE (NEGATIVE); URINE KETONE NEGATIVE (NEGATIVE); URINE LEUK ESTERASE NEGATIVE (NEGATIVE); URINE NITRITE NEGATIVE (NEGATIVE); URINE PROTEIN NEGATIVE (NEGATIVE); URINE UROBILINOGEN NEGATIVE mg/dL (0.2-1.0)
[2017-09-15 11:42] LABS: BASO % 0.3 % (0-2.0); EOS % 1.2 % (0-4.5); HEMATOCRIT 35.9 % (32.4-45.2); HEMOGLOBIN 12.6 GM/dL (10.7-15.3); LYMPH % 21.9 % (8-40); MCH 32.8 pg (25.7-33.7); MEAN CELL VOLUME 93.7 fl (80-96); MEAN PLT VOLUME 7.8 fl (7.5-11.1); MONO % 4.5 % (3.8-10.2); NEUT % 72.1 % (42.8-82.8); PLATELET COUNT 218 K/MM3 (134-434); RBC 3.83 M/mm3 (3.60-5.2); RDW 12.2 % (11.6-15.6); WHITE BLOOD COUNT 6.3 K/mm3 (4.0-10.0)
[2017-09-15 12:02] LABS: ALBUMIN 3.2 g/dl (3.4-5.0); ANION GAP 11 (8-16); BILIRUBIN,TOTAL 0.3 mg/dL (0.2-1.0); BLOOD UREA NITROGEN 7 mg/dL (7-18); CALCIUM 8.7 mg/dL (8.5-10.1); CHLORIDE 102 mmol/L (98-107); CO2 23 mmol/L (21-32); CREATININE 0.4 mg/dL (0.55-1.02); GLUCOSE,RANDOM 82 mg/dL (74-106); LIPASE 127 U/L (73-393); SGOT/AST 27 U/L (15-37); SGPT/ALT 30 U/L (12-78); SODIUM 136 mmol/L (136-145); TOT PROT 6.9 g/dl (6.4-8.2)
[2017-09-15 12:18] LABS: ALK PHOS 52 U/L (45-117)
[2017-09-15] MEDS ORDERED: ONDANSETRON 4 MG/2 ML VIAL IVPUSH ONE (13:25)
== END 2017-09-15 14:37 | disposition home or self-care (01) ==
LOC: JERFT 09:06 → JER 09:06
PROC: 3E0337Z Introduction of Electrolytic and Water Balance Substance into Peripheral Vein, Percutaneous Approach (ICD-10-PCS; principal; 2017-09-15)
PROC: 3E033GC Introduction of Other Therapeutic Substance into Peripheral Vein, Percutaneous Approach (ICD-10-PCS; 2017-09-15)
DX: O26.891 Other specified pregnancy related conditions, first trimester (principal); R10.10 Upper abdominal pain, unspecified; Z3A.13 13 weeks gestation of pregnancy
CPT/HCPCS: 36415; 76705-TC; 76801-TC; 80053; 81003; 83690; 84702; 85025; 87086; 96361; 96374; 99283-25

== ENCOUNTER 2017-11-27 09:36 | Observation (INO) | payer OTHER ==
[2017-11-27] MEDS ORDERED: SODIUM CHLORIDE 1,000 ML IV STA (10:01)
[2017-11-27] MEDS ORDERED: METOCLOPRAMIDE HCL INJECTION 10 MG/2 ML VIAL IVPUSH ONE (10:02)
[2017-11-27] MEDS ORDERED: ACETAMINOPHEN 325 MG TABLET (FP) PO ONE ×2 (10:04→18:21)
[2017-11-27] MEDS ORDERED: ACETAMINOPHEN 325 MG TABLET (FP) ONE ×2 (10:22→18:15)
[2017-11-27] MEDS ORDERED: METOCLOPRAMIDE HCL INJECTION 10 MG/2 ML VIAL ONE (10:22)
--- NOTE | 2017-11-27 10:44 | PDOC ---
Attending Attestation - Resident Resident Name: Nomi Melchor - ED Attending Attestation I have performed the following: I have examined & evaluated the patient, The case was reviewed & discussed with the resident, I agree w/resident's findings & plan, Exceptions are as noted - HPI HPI: 11/27/17 10:46 26-year-old female with past medical history of asthma, migraines, approximately 23 weeks presents with syncope. The patient reports waking up his morning in her usual state of health. The patient was sitting on a bus when she suddenly felt nauseous, dizzy and lightheaded. Then she had a syncopal episode while sitting down that was brief and the patient woke up feeling right arm numbness and right leg numbness. Patient thought she felt some leg discomfort but denies maximiliano chest pain. Denies recent illnesses, fevers , chills, cough, vomiting, diarrhea. Denies vaginal bleeding or dysuria. Patient reports some vague mild left abdominal discomfort. Came in by ambulance. EMS gave the patient 4 baby aspirins (Aleta STEWARD), and the patient was brought to [facility]. Patient is strong family history of preeclampsia but denies prior history of preeclampsia. - Physicial Exam PE: 11/27/17 10:46 GENERAL: Awake, alert, and fully oriented, in no acute distress. HEAD: No signs of trauma EYES: PERRLA, EOMI, sclera anicteric, conjunctiva clear ENT: Auricles normal inspection, hearing grossly normal, nares patent NECK: Normal ROM, supple LUNGS: Breath sounds equal, clear to auscultation bilaterally. No wheezes, and no crackles HEART: Regular rate and rhythm, normal S1 and S2, no murmurs, rubs or gallops ABDOMEN: Soft, nontender. No guarding, no rebound. No masses EXTREMITIES: Normal range of motion, no edema. No clubbing or cyanosis. No cords, erythema, or tenderness NEUROLOGICAL: Cranial nerves II through XII intact. Normal speech. Decreased sensation and strength in right upper and lower extremity. SKIN: Warm, Dry, normal turgor, no rashes or lesions noted. - Medical Decision Making 11/27/17 10:31 Vital Signs Temp Pulse Resp BP Pulse Ox 97.5 F L 91 H 18 110/73 100 11/27/17 09:42 11/27/17 09:42 11/27/17 09:42 11/27/17 09:45 11/27/17 09:42 26-year-old female patient presents with syncopal episode. We'll need to investigate on multiple fronts. Patient does have some right arm numbness and headache. Though the patient reports this is not typical of her migraines, we' ll need to potentially entertain complex migraines. However, given that she is in the second trimester and , could this be preeclampsia? If this is frequent with right-sided numbness, we'll empirically give IV magnesium and obtain a head CT to evaluate for complications. We had discussed the risks and benefits regarding radiation while . The patient is second trimester and at risk for exposure to the fetus. However, I explained with the right arm numbness and weakness in the right leg weakness, it is imperative that we take care of of the patient. After lengthy discussion, the patient consented verbally for head CT. We'll obtain labs including a urinalysis, urine culture, blood work including troponin. Patient denies chest pain to me now at this moment. Will Defer on imaging for pulmonary embolism at the moment. We'll obtain an abdominal ultrasound to evaluate the fetus given the abdominal discomfort. EKG to evaluate for arrhythmias. Ultimately, the patient needs to obtain heart monitoring in labor and delivery. Heart Score/ECG Review #1 ECG reviewed & interpreted by me at: 09:55 11/27/17 10:52 NSR 93, no std/allie, TWI III, normal axis, normal intervals, QTC 450 msec NIH Stroke Scale - Last Known Well Date/Time & Onset Date Last Known Well: 11/27/17 - Initial Evaluation Level of consciousness: Alert Ask patient the month and their age: Answers both correctly Ask patient to open & close eyes; make fist and let go: Obeys both correctly Best gaze (horizontal eye movement): Normal Visual field testing: No visual field loss Facial paresis (Show teeth/raise eyebrows/close eyes tight): Normal symmetrical movement Motor Function: Left Arm: Normal Motor Function: Right Arm: Some effort against gravity Motor Function: Left Leg: Normal (extends leg 30 degrees for 5 seconds without drift) Motor Function: Right Leg: Some effort against gravity Limb Ataxia: No ataxia Sensory(Use pinprick test arms,legs,trunk,face/side to side): Mild to moderate decrease in sensation Best language (Describe picture, name items, read sentences): No Aphasia Dysarthria (read several words): Normal articulation Extinction and Inattention: No abnormality - Total Score NIH Stroke Scale Score: 5
--- NOTE | 2017-11-27 10:49 | PDOC ---
History of Present Illness - General Chief Complaint: Syncope/Near Syncope Stated Complaint: PAIN Time Seen by Provider: 11/27/17 09:45 History Source: Patient, EMS Exam Limitations: No Limitations - History of Present Illness Initial Comments: 11/27/17 10:44 Patient is a 26F at 24 weeks with history of asthma and migraines here today complaining of syncope. She reports sitting on the bus, feeling warm, dizzy and then passing out. EMS reports no seizure movement. EMS reports no confusion at the scene. EMS reports blood pressure was 110/70 in the field, other vital signs normal and stable. EMS reports giving the patient 4 baby aspirin. Patient endorses chest pain with expiration and wheezing. She also reports headache with right sided weakness and parathesias. Denies fevers, chills, vomiting. Denies history of blood clots, recent travel and leg swelling. Denies history of prior Past History - Past Medical History Allergies/Adverse Reactions: Allergies Allergy/AdvReac Type Severity Reaction Status Date / Time No Known Drug Allergies Allergy Verified 11/27/17 09:41 tomato Allergy Verified 11/27/17 09:41 Home Medications: Ambulatory Orders NK [No Known Home Medication] 11/27/17 Asthma: Yes COPD: No - Surgical History Abdominal Surgery: Yes - Reproductive History (#): 2 Para: 1 Cervical CA: No Dysfunctional Uterine Bleeding: No Ectopic : No Endometrial CA: No Polycystic Ovaries: No Therapeutic (s) & number: No Tubal Ligation: No Spontaneous : 1 - Immunization History Immunization Up to Date: Yes - Suicide/Smoking/Psychosocial Hx Smoking Status: No Smoking History: Never smoked Have you smoked in the past 12 months: No Number of Cigarettes Smoked Daily: 0 Cigars Per Day: 0 Hx Alcohol Use: No Drug/Substance Use Hx: No Substance Use Type: None Review of Systems - Review of Systems Comments:: 11/27/17 10:50 GENERAL/CONSTITUTIONAL: No fever or chills. No weakness. HEAD, EYES, EARS, NOSE AND THROAT: No change in vision. No sore throat. CARDIOVASCULAR: Positive for chest pain and shortness of breath RESPIRATORY: No cough. Positive for wheezing. Negative for hemoptysis. GASTROINTESTINAL: Positive for nausea. Negative for vomiting, diarrhea or constipation. GENITOURINARY: No dysuria, frequency, or change in urination. MUSCULOSKELETAL: No joint or muscle swelling or pain. No neck or back pain. SKIN: No rash NEUROLOGIC: No headache, vertigo, loss of consciousness, or change in strength/ sensation. ENDOCRINE: No increased thirst. No abnormal weight change HEMATOLOGIC/LYMPHATIC: No anemia, easy bleeding, or history of blood clots. ALLERGIC/IMMUNOLOGIC: No hives or skin allergy. *Physical Exam - Vital Signs Last Vital Signs Temp Pulse Resp BP Pulse Ox 97.5 F L 91 H 18 110/73 100 11/27/17 09:42 11/27/17 09:42 11/27/17 09:42 11/27/17 09:45 11/27/17 09:42 - Physical Exam Comments: 11/27/17 10:52 GENERAL: Awake, alert, and fully oriented, in no acute distress HEAD: No signs of trauma, normocephalic, atraumatic EYES: PERRLA, EOMI, sclera anicteric, conjunctiva clear ENT: Auricles normal inspection, hearing grossly normal, nares patent, oropharynx clear without exudates. Moist mucosa NECK: Normal ROM, supple, no lymphadenopathy, JVD, or masses LUNGS: No distress, speaks full sentences, clear to auscultation bilaterally HEART: Regular rate and rhythm, normal S1 and S2, no murmurs, rubs or gallops, peripheral pulses normal and equal bilaterally. ABDOMEN: Gravid, nontender, normoactive bowel sounds. EXTREMITIES: Normal inspection, Normal range of motion, no edema. No clubbing or cyanosis. NEUROLOGICAL: Cranial nerves II through XII grossly intact. Normal speech, right arm and leg weakness, but good muscle tone. Decreased sensation on right side. SKIN: Warm, Dry, normal turgor, no rashes or lesions noted. Moderate Sedation - Procedure Monitoring Vital Signs: Vital Signs Temp Pulse Resp BP Pulse Ox 97.5 F L 91 H 18 110/73 100 11/27/17 09:42 11/27/17 09:42 11/27/17 09:42 11/27/17 09:45 11/27/17 09:42 ED Treatment Course - LABORATORY CBC & Chemistry Diagram: 11/27/17 12:07 11/27/17 12:07 - RADIOLOGY Radiology Studies Ordered: Category Date Time Status HEAD CT WITHOUT CONTRAST [CT] Stat CT Scan 11/27/17 10:05 Ordered LIMITED US [US] Stat Ultrasound 11/27/17 10:08 Ordered Medical Decision Making - Medical Decision Making 11/27/17 10:53 Patient is 26F with history of asthma and migraines here today with syncope. Vital signs normal and stable. No history of pre-eclampsia in prior two pregnancies. Concern for possible pre-eclampsia. Will do cbc, cmp, ua, trop, ekg , cxr. Patient consented for head ct, risks and benefits discussed. DDx also includes: arrhythmia, vasovagal, dehydration. Neurological symptoms could also be explained by complex migraines, neurology consulted. Do not believe patient is likely to have PE given history and physical. EKG shows normal sinus rhythm with rate of 93. No st elevations/depressions. No significant t wave abnormalities. Normal OH/QRS/QTc intervals. No S1Q3T3 pattern. 11/27/17 13:02 Laboratory Tests 11/27/17 11/27/17 11/27/17 12:00 12:00 12:07 WBC 8.6 D Hgb 11.9 Plt Count 244 INR 1.04 Ur Leukocyte Esterase 1+ H Urine WBC (Auto) 3 Urine RBC (Auto) <1 CBC normal. INR normal. UA negative. CMP reassuring. 11/27/17 13:[address] and ob ultrasound normal. 11/27/17 19:05 Patient admitted for further observation and workup. *DC/Admit/Observation/Transfer Diagnosis at time of Disposition: Syncope, Numbness - Discharge Dispostion Condition at time of disposition: Stable - Referrals - Patient Instructions - Post Discharge Activity
[2017-11-27 12:10] LABS: BASO % 0.2 % (0-2.0); EOS % 0.4 % (0-4.5); HEMATOCRIT 35.2 % (32.4-45.2); HEMOGLOBIN 11.9 GM/dL (10.7-15.3); LYMPH % 16.1 % (8-40); MCH 31.5 pg (25.7-33.7); MCHC 33.7 g/dl (32.0-36.0); MEAN CELL VOLUME 93.3 fl (80-96); MONO % 3.3 % (3.8-10.2); PLATELET COUNT 244 K/MM3 (134-434); RBC 3.78 M/mm3 (3.60-5.2); RDW 13.3 % (11.6-15.6); WHITE BLOOD COUNT 8.6 K/mm3 (4.0-10.0)
[2017-11-27 12:16] LABS: URINE APPEARANCE CLEAR; URINE BILIRUBIN NEGATIVE (<2.0 mg/dL); URINE COLOR STRAW; URINE GLUCOSE (UA) NEGATIVE (NEGATIVE); URINE KETONE NEGATIVE (NEGATIVE); URINE NITRITE NEGATIVE (NEGATIVE); URINE PROTEIN NEGATIVE (NEGATIVE); URINE UROBILINOGEN NEGATIVE mg/dL (0.2-1.0)
[2017-11-27 12:30] LABS: URINE LEUK ESTERASE 1+ (NEGATIVE)
[2017-11-27 12:31] LABS: EPI CELLS RARE /HPF (FEW); URINE BACTERIA RARE /hpf (NONE SEEN); URINE MUCUS RARE
[2017-11-27 12:35] LABS: INR 1.04 (0.82-1.09); PROTHROMBIN TIME (PATIENT) 11.8 SEC (9.7-13.0)
[2017-11-27 12:37] LABS: ALBUMIN 2.9 g/dl (3.4-5.0); ANION GAP 7 (8-16); BILIRUBIN,TOTAL 0.3 mg/dL (0.2-1.0); BLOOD UREA NITROGEN 7 mg/dL (7-18); CALCIUM 8.5 mg/dL (8.5-10.1); CHLORIDE 107 mmol/L (98-107); CO2 25 mmol/L (21-32); CREATININE 0.5 mg/dL (0.55-1.02); GLUCOSE,RANDOM 83 mg/dL (74-106); MAGNESIUM 1.9 mg/dL (1.8-2.4); POTASSIUM 3.7 mmol/L (3.5-5.1); SGOT/AST 15 U/L (15-37); SGPT/ALT 17 U/L (12-78); SODIUM 139 mmol/L (136-145); TOT PROT 6.7 g/dl (6.4-8.2)
[2017-11-27 12:39] LABS: ALK PHOS 83 U/L (45-117)
[2017-11-27] MEDS ORDERED: MAGNESIUM SULF 50% (8.12 MEQ/2 ML-1 GM VIAL) ONE (13:04)
[2017-11-27] MEDS ORDERED: SODIUM CHLORIDE 1,000 ML IV SCH (13:45)
--- NOTE | 2017-11-27 13:49 | CON.NEURO ---
Consult - Past Medical History ...LMP: 10/27/14 - Alcohol/Substance Use Hx Alcohol Use: No - Smoking History Smoking history: Never smoked Have you smoked in the past 12 months: No Aproximately how many cigarettes per day: 0 Home Medications - Allergies Allergies/Adverse Reactions: Allergies Allergy/AdvReac Type Severity Reaction Status Date / Time No Known Drug Allergies Allergy Verified 11/27/17 09:41 tomato Allergy Verified 11/27/17 09:41 - Home Medications Home Medications: Ambulatory Orders NK [No Known Home Medication] 11/27/17 Physical Exam-Neuro Vital Signs: Vital Signs Temperature 97.5 F L 11/27/17 09:42 Pulse Rate 91 H 11/27/17 09:42 Respiratory Rate 18 11/27/17 09:42 Blood Pressure 110/73 11/27/17 09:45 O2 Sat by Pulse Oximetry (%) 100 11/27/17 09:42 Labs: CBC, BMP 11/27/17 12:07 11/27/17 12:07 INR, PTT INR 1.04 (0.82-1.09) 11/27/17 12:00 Assessment/Plan cc Right sided weakness HPI 26 year old female history of Migraine, asthma. She is 23 week , She is getting headhace twice or thrice a week. There has not been any weakness or seizure before. She is being treated with tylenol for her migraine. Today she has episode of dizziness, and passin gout. She woke up with headhace and feeling right arm and leg, and left face numbness. Left face numbness is resolved , she still continue to right arm and leg weakness. She denies any headache at this time. Her cat scan of brain is normal. 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 Syncope , unlikley to be seizure 2. Right arm and leg weakness, would do mri of brain to rule out any acute stroke or cerebral venous thrombosis, other possibility include conversion reaction or complex migraine PLAN- PT and MRI of brain - benefit and side effect of mri of brain during were discussed with patient Thanking you so much Andrez Emery MD
[2017-11-27] MEDS: PRENATAL VITAMINS W/ FOLIC ACID TABLET (FP) PO SCH (14:29)
--- NOTE | 2017-11-27 14:35 | PDOC ---
*Physical Exam - Vital Signs Last Vital Signs Temp Pulse Resp BP Pulse Ox 97.5 F L 91 H 18 110/73 100 11/27/17 09:42 11/27/17 09:42 11/27/17 09:42 11/27/17 09:45 11/27/17 09:42 <Yany Marrufo - Last Filed: 11/27/17 16:10> - Vital Signs Last Vital Signs Temp Pulse Resp BP Pulse Ox 97.5 F L 91 H 18 110/73 100 11/27/17 09:42 11/27/17 09:42 11/27/17 09:42 11/27/17 09:45 11/27/17 09:42 <Jai Davis - Last Filed: 11/27/17 16:12> ED Treatment Course - LABORATORY CBC & Chemistry Diagram: 11/27/17 12:07 11/27/17 12:07 - ADDITIONAL ORDERS Additional order review: Laboratory Results 11/27/17 11/27/17 11/27/17 12:07 12:00 12:00 PT with INR 11.80 INR 1.04 Sodium 139 Potassium 3.7 Chloride 107 Carbon Dioxide 25 Anion Gap 7 L BUN 7 Creatinine 0.5 L Creat Clearance w eGFR > 60 Random Glucose 83 Calcium 8.5 Magnesium 1.9 Total Bilirubin 0.3 AST 15 ALT 17 Alkaline Phosphatase 83 Creatine Kinase 51 Troponin I < 0.02 Total Protein 6.7 Albumin 2.9 L Urine Color Straw Urine Appearance Clear Urine pH 8.0 Ur Specific [place] 1.005 Urine Protein Negative Urine Glucose (UA) Negative Urine Ketones Negative Urine Blood Negative Urine Nitrite Negative Urine Bilirubin Negative Urine Urobilinogen Negative Ur Leukocyte Esterase 1+ H Urine WBC (Auto) 3 Urine RBC (Auto) <1 Ur Epithelial Cells Rare Urine Bacteria Rare Urine Mucus Rare 11/27/17 12:07 RBC 3.78 MCV 93.3 MCHC 33.7 RDW 13.3 MPV 8.0 Neutrophils % 80.0 Lymphocytes % 16.1 D Monocytes % 3.3 L Eosinophils % 0.4 Basophils % 0.2 - Medications Given in the ED: ED Medications Discontinued Medications Generic Name Dose Route Start Last Admin Trade Name Freq PRN Reason Stop Dose Admin Acetaminophen 650 mg 11/27/17 10:04 11/27/17 12:09 Tylenol - PO 05/21/18 10:05 650 mg ONCE ONE Administration Sodium Chloride 1,000 mls @ 1,000 mls/hr 11/27/17 10:01 11/27/17 12:08 Normal Saline - IV 11/27/17 11:00 1,000 mls/hr ASDIR STA Administration Magnesium Sulfate/Dextrose 2 200 mls @ 100 mls/hr 11/27/17 10:46 11/27/17 13: 09 gm/ Miscellaneous IVPB 11/27/17 12:45 100 mls/hr ONCE ONE Administration Sodium Chloride 1,000 mls @ 100 mls/hr 11/27/17 13:45 11/27/17 14:26 Normal Saline - IV 100 mls/hr ASDIR IRAIS Administration Metoclopramide HCl 10 mg 11/27/17 10:02 11/27/17 12:09 Reglan Injection - IVPUSH 11/27/17 10:03 10 mg ONCE ONE Administration <Yany Marrufo - Last Filed: 11/27/17 16:10> - LABORATORY CBC & Chemistry Diagram: 11/27/17 12:07 11/27/17 12:07 - ADDITIONAL ORDERS Additional order review: Laboratory Results 11/27/17 11/27/17 11/27/17 12:07 12:00 12:00 PT with INR 11.80 INR 1.04 Sodium 139 Potassium 3.7 Chloride 107 Carbon Dioxide 25 Anion Gap 7 L BUN 7 Creatinine 0.5 L Creat Clearance w eGFR > 60 Random Glucose 83 Calcium 8.5 Magnesium 1.9 Total Bilirubin 0.3 AST 15 ALT 17 Alkaline Phosphatase 83 Creatine Kinase 51 Troponin I < 0.02 Total Protein 6.7 Albumin 2.9 L Urine Color Straw Urine Appearance Clear Urine pH 8.0 Ur Specific [place] 1.005 Urine Protein Negative Urine Glucose (UA) Negative Urine Ketones Negative Urine Blood Negative Urine Nitrite Negative Urine Bilirubin Negative Urine Urobilinogen Negative Ur Leukocyte Esterase 1+ H Urine WBC (Auto) 3 Urine RBC (Auto) <1 Ur Epithelial Cells Rare Urine Bacteria Rare Urine Mucus Rare 11/27/17 12:07 RBC 3.78 MCV 93.3 MCHC 33.7 RDW 13.3 MPV 8.0 Neutrophils % 80.0 Lymphocytes % 16.1 D Monocytes % 3.3 L Eosinophils % 0.4 Basophils % 0.2 - Medications Given in the ED: ED Medications Discontinued Medications Generic Name Dose Route Start Last Admin Trade Name Francine PRN Reason Stop Dose Admin Acetaminophen 650 mg 11/27/17 10:04 11/27/17 12:09 Tylenol - PO 11/27/17 10:05 650 mg ONCE ONE Administration Sodium Chloride 1,000 mls @ 1,000 mls/hr 11/27/17 10:01 11/27/17 12:08 Normal Saline - IV 11/27/17 11:00 1,000 mls/hr ASDIR STA Administration Magnesium Sulfate/Dextrose 2 200 mls @ 100 mls/hr 11/27/17 10:46 11/27/17 13: 09 gm/ Miscellaneous IVPB 11/27/17 12:45 100 mls/hr ONCE ONE Administration Metoclopramide HCl 10 mg 11/27/17 10:02 11/27/17 12:09 Reglan Injection - IVPUSH 11/27/17 10:03 10 mg ONCE ONE Administration <Jai Davis - Last Filed: 11/27/17 16:12> Medical Decision Making - Medical Decision Making 11/27/17 16:[address] Salinas at [facility], who agrees to consult and requests admission. Will admit to Dr. Caba, who is on-call for medicine. Case discussed with Dr. Caba who agrees to admission. <Yany Marrufo - Last Filed: 11/27/17 16:10> - Medical Decision Making 11/27/17 14:33 CBC, BMP 11/27/17 12:07 11/27/17 12:07 CMP Sodium 139 mmol/L (136-145) 11/27/17 12:07 Potassium 3.7 mmol/L (3.5-5.1) 11/27/17 12:07 Chloride 107 mmol/L (98-107) 11/27/17 12:07 Carbon Dioxide 25 mmol/L (21-32) 11/27/17 12:07 Anion Gap 7 (8-16) L 11/27/17 12:07 BUN 7 mg/dL (7-18) 11/27/17 12:07 Creatinine 0.5 mg/dL (0.55-1.02) L 11/27/17 12:07 Creat Clearance w eGFR > 60 (>60) 11/27/17 12:07 Random Glucose 83 mg/dL (74-106) 11/27/17 12:07 Calcium 8.5 mg/dL (8.5-10.1) 11/27/17 12:07 Magnesium 1.9 mg/dL (1.8-2.4) 11/27/17 12:07 Total Bilirubin 0.3 mg/dL (0.2-1.0) 11/27/17 12:07 AST 15 U/L (15-37) 11/27/17 12:07 ALT 17 U/L (12-78) 11/27/17 12:07 Alkaline Phosphatase 83 U/L (45-117) 11/27/17 12:07 Creatine Kinase 51 IU/L (26-192) 11/27/17 12:07 Troponin I < 0.02 ng/ml (0.00-0.05) 11/27/17 12:07 Total Protein 6.7 g/dl (6.4-8.2) 11/27/17 12:07 Albumin 2.9 g/dl (3.4-5.0) L 11/27/17 12:07 Patient a CAT scan head performed which shows no acute findings. I had discussed the case with neurologist Dr. Emery who will consult on patient. Will obtain MRI brain. Case discussed with Dr. Salinas. She will be a documentum consultant on the case. Case discussed in detail with admitting physician Dr. Caba including history , physical exam and ancillary studies. Admitting physician has assumed care for the patient, will follow all pending diagnostics and will complete the evaluation and treatment. 11/27/17 16:11 <Jai Davis - Last Filed: 11/27/17 16:12> *DC/Admit/Observation/Transfer - Attestations Scribe Attestion: 11/27/17 16:11 Documentation prepared by Ynay Marrufo, acting as infertility medical assistant for Jai Davis MD. <Yany Marrufo - Last Filed: 11/27/17 16:10> - Discharge Dispostion Decision to Admit order: Yes <Jai Davis - Last Filed: 11/27/17 16:12> Diagnosis at time of Disposition: Numbness Syncope Qualifiers: Syncope type: unspecified Qualified Code(s): R55 - Syncope and collapse - Discharge Dispostion Condition at time of disposition: Stable - Referrals Referrals: Kerri Everett MD [Primary Care Provider] - - Patient Instructions - Post Discharge Activity
--- NOTE | 2017-11-27 18:06 | EKG ---
Test Reason : Blood Pressure : / mmHG Vent. Rate : 093 BPM Atrial Rate : 093 BPM P-R Int : 166 ms QRS Dur : 074 ms QT Int : 362 ms P-R-T Axes : 054 047 024 degrees QTc Int : 450 ms NORMAL SINUS RHYTHM POSSIBLE LEFT ATRIAL ENLARGEMENT BORDERLINE ECG WHEN COMPARED WITH ECG OF 02 OCT 2004 VENT. RATE HAS INCREASED T WAVE VARIATION Confirmed by MIKE HOUSTON MD ([id number]) on 11/27/2017 6:06:24 PM Referred By: Confirmed By:MIKE HOUSTON MD
--- NOTE | 2017-11-27 20:54 | HP ---
Admitting History and Physical - Primary Care Physician PCP: Shreya Caba - Admission Chief Complaint: R sided weakness History of Present Illness: cc Right sided weakness HPI 26 year old female history of Migraine, asthma. She is 23 week , She is getting headhace twice or thrice a week. There has not been any weakness or seizure before. She is being treated with tylenol for her migraine. Today she has episode of dizziness, and passin gout. She woke up with headhace and feeling right arm and leg, and left face numbness. Left face numbness is resolved , she still continue to right arm and leg weakness. She denies any headache at this time. Her cat scan of brain is normal. 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 - Smoking History Smoking history: Never smoked Have you smoked in the past 12 months: No Aproximately how many cigarettes per day: 0 - Alcohol/Substance Use Hx Alcohol Use: No Home Medications - Allergies Allergies/Adverse Reactions: Allergies Allergy/AdvReac Type Severity Reaction Status Date / Time No Known Drug Allergies Allergy Verified 11/27/17 09:41 tomato Allergy Verified 11/27/17 09:41 - Home Medications Home Medications: Ambulatory Orders NK [No Known Home Medication] 11/27/17 Physical Examination Vital Signs: Vital Signs Temperature 97.5 F L 11/27/17 09:42 Pulse Rate 91 H 11/27/17 09:42 Respiratory Rate 18 11/27/17 09:42 Blood Pressure 110/73 11/27/17 09:45 O2 Sat by Pulse Oximetry (%) 100 11/27/17 09:42 Constitutional: Yes: No Distress HENT: Yes: Atraumatic Neck: Yes: Supple Cardiovascular: Yes: Regular Rate and Rhythm Respiratory: Yes: CTA Bilaterally Gastrointestinal: Yes: Normal Bowel Sounds Extremities: Yes: WNL Edema: No Peripheral Pulses WNL: Yes Neurological: Yes: Alert, Oriented ...Motor Strength: WNL Labs: CBC, BMP 11/27/17 12:07 11/27/17 12:07 Problem List - Problems (1) Right sided weakness Assessment/Plan: will observe neuro eval noted pt eval ct scan and mri done Code(s): R53.1 - WEAKNESS (2) Assessment/Plan: 23 wetx obgyn on case Code(s): Z34.90 - ENCNTR FOR SUPRVSN OF NORMAL , UNSP, UNSP TRIMESTER (3) Migraine Assessment/Plan: prn tylenol neuro consult ct scan and mri done Code(s): G43.909 - MIGRAINE, UNSP, NOT INTRACTABLE, WITHOUT STATUS MIGRAINOSUS Assessment/Plan Laboratory Tests 11/27/17 11/27/17 11/27/17 12:00 12:00 12:07 WBC 8.6 D RBC 3.78 Hgb 11.9 Hct 35.2 MCV 93.3 MCH 31.5 MCHC 33.7 RDW 13.3 Plt Count 244 MPV 8.0 Neutrophils % 80.0 Lymphocytes % 16.1 D Monocytes % 3.3 L Eosinophils % 0.4 Basophils % 0.2 Nucleated RBC % 0 PT with INR 11.80 INR 1.04 Sodium Potassium Chloride Carbon Dioxide Anion Gap BUN Creatinine Creat Clearance w eGFR Random Glucose Calcium Magnesium Total Bilirubin AST ALT Alkaline Phosphatase Creatine Kinase Troponin I Total Protein Albumin Urine Color Straw Urine Appearance Clear Urine pH 8.0 Ur Specific [place] 1.005 Urine Protein Negative Urine Glucose (UA) Negative Urine Ketones Negative Urine Blood Negative Urine Nitrite Negative Urine Bilirubin Negative Urine Urobilinogen Negative Ur Leukocyte Esterase 1+ H Urine WBC (Auto) 3 Urine RBC (Auto) <1 Ur Epithelial Cells Rare Urine Bacteria Rare Urine Mucus Rare 11/27/17 12:07 WBC RBC Hgb Hct MCV MCH MCHC RDW Plt Count MPV Neutrophils % Lymphocytes % Monocytes % Eosinophils % Basophils % Nucleated RBC % PT with INR INR Sodium 139 Potassium 3.7 Chloride 107 Carbon Dioxide 25 Anion Gap 7 L BUN 7 Creatinine 0.5 L Creat Clearance w eGFR > 60 Random Glucose 83 Calcium 8.5 Magnesium 1.9 Total Bilirubin 0.3 AST 15 ALT 17 Alkaline Phosphatase 83 Creatine Kinase 51 Troponin I < 0.02 Total Protein 6.7 Albumin 2.9 L Urine Color Urine Appearance Urine pH Ur Specific [place] Urine Protein Urine Glucose (UA) Urine Ketones Urine Blood Urine Nitrite Urine Bilirubin Urine Urobilinogen Ur Leukocyte Esterase Urine WBC (Auto) Urine RBC (Auto) Ur Epithelial Cells Urine Bacteria Urine Mucus Active Medications Generic Name Dose Route Start Last Admin Trade Name Freq PRN Reason Stop Dose Admin Multivit/Folic Acid/Iron 1 tab 11/27/17 14:00 11/27/17 14:29 Vitamins (Sjr) - PO Not Given DAILY IRAIS
[2017-11-27] MEDS ORDERED: ACETAMINOPHEN 325 MG TABLET (FP) PO PRN (20:55)
--- NOTE | 2017-11-28 02:53 | CONSULT ---
Consult Consult Specialty:: Obstetrics Referred by:: Josephine Reason for Consultation:: Pregancy at 23 weeks - History of Present Illness Chief Complaint: Syncope with pregnacy at 23 weeks. Numbness & weakness in legs History of Present Illness: 26 yo EDC 03/21/18 EGA 23.5 weeks seen by MFM during who presented to ER due to syncope with numbness and weakness. 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: 10/27/14 - Past Surgical History Past Surgical History: Yes: Additional Surgical History: Laparoscopic Ovarian torsion - Alcohol/Substance Use Hx Alcohol Use: No History of Substance Use: reports: None - Smoking History Smoking history: Never smoked Have you smoked in the past 12 months: No Aproximately how many cigarettes per day: 0 - Social History Usual Living Arrangement: With Spouse History of Recent Travel: No Home Medications - Allergies Allergies/Adverse Reactions: Allergies Allergy/AdvReac Type Severity Reaction Status Date / Time No Known Drug Allergies Allergy Verified 11/27/17 09:41 tomato Allergy Verified 11/27/17 09:41 - Home Medications Home Medications: Ambulatory Orders NK [No Known Home Medication] 11/27/17 Physical Exam Vital Signs: Vital Signs Temperature 98.1 F 11/27/17 23:06 Pulse Rate 104 H 11/27/17 23:06 Respiratory Rate 15 11/27/17 23:06 Blood Pressure 99/66 11/27/17 23:06 O2 Sat by Pulse Oximetry (%) 98 11/27/17 23:06 Constitutional: Yes: Well Nourished, No Distress Gastrointestinal: Yes: WNL, Soft, Other (gravid at 23 week) Labs: CBC, BMP 11/27/17 12:07 11/27/17 12:07 Problem List - Problems (1) Numbness Code(s): R20.0 - ANESTHESIA OF SKIN (2) Code(s): Z34.90 - ENCNTR FOR SUPRVSN OF NORMAL , UNSP, UNSP TRIMESTER (3) Right sided weakness Code(s): R53.1 - WEAKNESS (4) Syncope Code(s): R55 - SYNCOPE AND COLLAPSE Qualifiers: Syncope type: unspecified Qualified Code(s): R55 - Syncope and collapse Assessment/Plan IUP at 23.5 week syncope numbness weakness plan FHR Q shift MFM repeat usg iin am OB will continue to follow neurology cleared need cardiac clearance telemetry
[2017-11-28 09:37] VITALS: BMI 31.5
[2017-11-28] MEDS: PRENATAL VITAMINS W/ FOLIC ACID TABLET (FP) PO SCH (10:02)
--- NOTE | 2017-11-28 10:29 | PN ---
Ante-Partal Exam - Subjective Subjective: Pt doing better no more weakness desires to go home Vital Signs: Vital Signs Temperature 98.1 F 11/27/17 23:06 Pulse Rate 96 H 11/28/17 06:46 Respiratory Rate 16 11/28/17 06:46 Blood Pressure 105/67 11/28/17 06:46 O2 Sat by Pulse Oximetry (%) 99 11/28/17 06:46 Bleeding: No Headache: No Visual changes: No Right upper quadrant pain: No - Contractions Contractions: No - Exam during Labor Heart Rate: 145 Variability: Minimal Category: I Amniotic Membrane Status: Intact - Intrapartum Hemorrhage Risk Risk Score: 0 Risk Level: Low Risk - Assessment/Plan Assessment/Plan: syncope at 23.5 weeks weakness - resolved neurology - resolved cardiac cleared Plan DC home RTO 1 week
[2017-11-28 10:58] VITALS: BP 111/65; PULSE 101; TEMP 98.7
--- NOTE | 2017-11-28 16:02 | DS ---
Physical Examination Vital Signs: Vital Signs Temperature 98.7 F 11/28/17 10:29 Pulse Rate 101 H 11/28/17 10:29 Respiratory Rate 18 11/28/17 10:29 Blood Pressure 111/65 11/28/17 10:29 O2 Sat by Pulse Oximetry (%) 99 11/28/17 06:46 Labs: CBC, BMP 11/27/17 12:07 11/27/17 12:07 Discharge Summary Reason For Visit: NUMBNESS,SYNCOPE Condition: Stable - Instructions Diet, Activity, Other Instructions: DISCHARGE TO HOME, REST AT HOME AND KEEP YOUR NEXT SCHEDULED CARE APPOINTMENT. RETURN TO LABOR AND DELIVERY IF YOU ARE HAVING REGULAR CONTRACTION , YOU BREAK YOUR WATER, YOU HAVE PERIOD LIKE VAGINAL BLEEDING OR YOU ARE NOT FEELING YOUR BABY MOVE. BE SURE TO STAY HYDRATED BY DRINKING 8-10 GLASSES OF WATER EACH DAY. YOU CAN RETURN TO CLASS ON Monday12/05/17 SCHEDULED. IF YOU HAVE ANY QUESTIONS OR CONCERNS YOU CAN CONTACT YOUR CARE DOCTOR OR LABOR AND DELIVERY AT [phone]. Referrals: Kerri Everett MD [Primary Care Provider] - Disposition: HOME - Home Medications Comprehensive Discharge Medication List: Ambulatory Orders NK [No Known Home Medication] 11/27/17 pt dischrged by obgyn...didnt get to see patient
--- NOTE | 2017-11-29 16:33 | EKG ---
Test Reason : Blood Pressure : / mmHG Vent. Rate : 093 BPM Atrial Rate : 093 BPM P-R Int : 162 ms QRS Dur : 078 ms QT Int : 350 ms P-R-T Axes : 043 022 012 degrees QTc Int : 435 ms NORMAL SINUS RHYTHM NORMAL ECG WHEN COMPARED WITH ECG OF 27-NOV-2017 09:52, NO SIGNIFICANT CHANGE WAS FOUND Confirmed by KAY RAMOS MD ([id number]) on 11/29/2017 4:32:43 PM Referred By: Confirmed By:KAY RAMOS MD
== END 2017-11-28 11:20 | disposition home or self-care (01) ==
LOC: JER 09:36 → JERBED 16:13
PROVIDERS: ADMIT Internal Medicine; ATTEND Internal Medicine
PROC: 3E033GC Introduction of Other Therapeutic Substance into Peripheral Vein, Percutaneous Approach (ICD-10-PCS; principal; 2017-11-27)
PROC: 3E0337Z Introduction of Electrolytic and Water Balance Substance into Peripheral Vein, Percutaneous Approach (ICD-10-PCS; 2017-11-27)
DX: O26.892 Other specified pregnancy related conditions, second trimester (principal); Z3A.23 23 weeks gestation of pregnancy; R55 Syncope and collapse; R20.0 Anesthesia of skin; J45.909 Unspecified asthma, uncomplicated; G43.909 Migraine, unspecified, not intractable, without status migrainosus; R53.1 Weakness
CPT/HCPCS: 36415; 59025; 70450-TC; 70551-TC; 76815-TC; 80053; 81003; 81015; 82550; 83735; 84484; 85025; 85610; 93005; 93010; 96361; 96374; 99284-25; G0378; J7030

== ENCOUNTER 2021-12-14 11:10 | Inpatient (IN) | payer OTHER ==
[2021-12-14] MEDS ORDERED: SODIUM CHLORIDE 0.9% 500 ML INFUS.BAG IV ONE ×2 (11:42→14:36)
[2021-12-14] MEDS ORDERED: morphine CARPU-JECT 4 MG/1 ML DISP.SYRIN IVPUSH ONE ×2 (11:42→13:47)
[2021-12-14] MEDS ORDERED: ONDANSETRON 4 MG/2 ML VIAL IVPUSH ONE ×3 (11:42→20:14)
[2021-12-14] MEDS ORDERED: ONDANSETRON 4 MG/2 ML VIAL ONE ×3 (11:55→20:17)
[2021-12-14] MEDS ORDERED: morphine SULFATE 4 MG/ML VIAL ONE ×2 (11:55→13:55)
[2021-12-14] MEDS ORDERED: KETOROLAC TROMETHAMINE 15 MG/ML VIAL IVPUSH ONE (12:22)
[2021-12-14] MEDS ORDERED: morphine CARPU-JECT 2 MG/1 ML DISP.SYRIN IVPUSH ONE (12:23)
[2021-12-14] MEDS ORDERED: KETOROLAC TROMETHAMINE 60 MG/2 ML VIAL ONE (12:31)
[2021-12-14 12:32] LABS: PH,URINE 6.5 (5.0-8.0); URINE APPEARANCE CLEAR; URINE BILIRUBIN NEGATIVE (NEGATIVE); URINE COLOR YELLOW; URINE GLUCOSE (UA) NEGATIVE (NEGATIVE); URINE KETONE NEGATIVE (NEGATIVE); URINE LEUK ESTERASE NEGATIVE (NEGATIVE); URINE NITRITE NEGATIVE (NEGATIVE); URINE PROTEIN NEGATIVE (NEGATIVE); URINE UROBILINOGEN 0.2 mg/dL (0.2-1.0)
[2021-12-14 12:35] LABS: HCG,QUALITATIVE URINE Negative
[2021-12-14 14:00] LABS: BASO % 0.4 % (0-2.0); EOS % 0.6 % (0-4.5); HEMATOCRIT 40.8 % (32.4-45.2); HEMOGLOBIN 13.7 GM/dL (10.7-15.3); LYMPH % 28.7 % (8-40); MCH 31.6 pg (25.7-33.7); MCHC 33.5 g/dl (32.0-36.0); MEAN CELL VOLUME 94.2 fl (80-96); MEAN PLT VOLUME 8.2 fl (7.5-11.1); MONO % 3.6 % (3.8-10.2); NEUT % 66.7 % (42.8-82.8); PLATELET COUNT 303 10^3/uL (134-434); RBC 4.33 M/mm3 (3.60-5.2); RDW 12.8 % (11.6-15.6); WHITE BLOOD COUNT 7.4 K/mm3 (4.0-10.0)
[2021-12-14 14:20] LABS: ALBUMIN 4.2 g/dl (3.4-5.0); BLOOD UREA NITROGEN 13.9 mg/dL (7-18)
[2021-12-14 14:23] LABS: CREATININE 0.8 mg/dL (0.55-1.3)
[2021-12-14 14:24] LABS: BILIRUBIN,TOTAL 0.3 mg/dL (0.2-1)
[2021-12-14 14:26] LABS: TOT PROT 7.9 g/dl (6.4-8.2)
[2021-12-14 14:56] LABS: CALCIUM 9.5 mg/dL (8.5-10.1)
[2021-12-14] MEDS ORDERED: SODIUM CHLORIDE 1,000 ML IV SCH (17:30)
[2021-12-14] MEDS ORDERED: CEFTRIAXONE 1 GM in DEXTROSE 5%-WATER - 50 ML IVPB ONE (17:42)
[2021-12-14] MEDS ORDERED: CEFTRIAXONE 1 GM/50 ML BAG ONE (17:48)
[2021-12-14 21:51] LABS: EPI CELLS 17 /uL (0-25.1); HYALINE CASTS 0 /uL (0-3.1); PH,URINE 7.5 (5.0-8.0); URINE APPEARANCE CLEAR; URINE BACTERIA 234 /uL (0-1359); URINE BILIRUBIN NEGATIVE (NEGATIVE); URINE COLOR YELLOW; URINE GLUCOSE (UA) NEGATIVE (NEGATIVE); URINE KETONE NEGATIVE (NEGATIVE); URINE LEUK ESTERASE NEGATIVE (NEGATIVE); URINE NITRITE NEGATIVE (NEGATIVE); URINE PROTEIN NEGATIVE (NEGATIVE); URINE RBC 318 /uL (0-23.9); URINE UROBILINOGEN 0.2 mg/dL (0.2-1.0); URINE WBC 11 /uL (0-25.8)
[2021-12-15 04:10] VITALS: BMI 27.1
[2021-12-15 09:05] LABS: INR 1.15 (0.83-1.09); PROTHROMBIN TIME (PATIENT) 13.3 SEC (9.7-13.0)
[2021-12-15 09:08] LABS: ACTIVATED PTT 31.1 SECONDS (25.2-36.5)
[2021-12-15 09:18] LABS: ALBUMIN 3.4 g/dl (3.4-5.0); BLOOD UREA NITROGEN 11.8 mg/dL (7-18); CALCIUM 8.4 mg/dL (8.5-10.1); MAGNESIUM 2.2 mg/dL (1.8-2.4)
[2021-12-15 09:21] LABS: CREATININE 0.7 mg/dL (0.55-1.3); PHOSPHOROUS 2.8 mg/dL (2.5-4.9)
[2021-12-15 09:22] LABS: BILIRUBIN,TOTAL 0.3 mg/dL (0.2-1); TOT PROT 6.6 g/dl (6.4-8.2)
[2021-12-15 10:03] LABS: BASO % 0.2 % (0-2.0); EOS % 0.9 % (0-4.5); HEMOGLOBIN 12.8 GM/dL (10.7-15.3); LYMPH % 29.6 % (8-40); MCH 31.6 pg (25.7-33.7); MCHC 33.6 g/dl (32.0-36.0); MEAN CELL VOLUME 94.2 fl (80-96); MEAN PLT VOLUME 8.2 fl (7.5-11.1); MONO % 4.7 % (3.8-10.2); NEUT % 64.6 % (42.8-82.8); PLATELET COUNT 258 10^3/uL (134-434); RBC 4.03 M/mm3 (3.60-5.2); RDW 12.7 % (11.6-15.6); WHITE BLOOD COUNT 8.1 K/mm3 (4.0-10.0)
[2021-12-15] MEDS ORDERED: TOPIRAMATE 25 MG TABLET PO ONE (11:04)
[2021-12-15] MEDS: ACETAMINOPHEN 325 MG TABLET (FP) PO PRN (11:43)
[2021-12-15] MEDS ORDERED: ACETAMINOPHEN 325 MG TABLET (FP) PO PRN (11:44)
[2021-12-15] MEDS ORDERED: KETOROLAC TROMETHAMINE 30 MG/1 ML VIAL IVPUSH ONE (11:47)
[2021-12-15] MEDS: SODIUM CHLORIDE 1,000 ML IV SCH ×2 (12:30→22:57)
[2021-12-15] MEDS: TAMSULOSIN HCL 0.4 MG CAP PO SCH (16:45)
[2021-12-15] MEDS: ONDANSETRON 4 MG/2 ML VIAL IVPUSH PRN ×2 (17:06→21:45)
[2021-12-15] MEDS: KETOROLAC TROMETHAMINE 15 MG/ML VIAL IVPUSH PRN (19:45)
[2021-12-15] MEDS: TOPIRAMATE 25 MG TABLET PO SCH (21:45)
[2021-12-15] MEDS ORDERED: TOPIRAMATE 25 MG TABLET PO SCH (22:00)
[2021-12-16] MEDS: KETOROLAC TROMETHAMINE 15 MG/ML VIAL IVPUSH PRN ×3 (06:15→19:57)
[2021-12-16] MEDS ORDERED: TOPIRAMATE 25 MG TABLET PO SCH (07:00)
[2021-12-16] MEDS: SODIUM CHLORIDE 1,000 ML IV SCH ×2 (10:24→21:31)
[2021-12-16] MEDS: TOPIRAMATE 25 MG TABLET PO SCH ×2 (10:24→21:31)
[2021-12-16] MEDS: TAMSULOSIN HCL 0.4 MG CAP PO SCH (10:25)
[2021-12-16] MEDS: ACETAMINOPHEN 325 MG TABLET (FP) PO PRN (10:35)
[2021-12-17] MEDS: SODIUM CHLORIDE 1,000 ML IV SCH (09:00)
[2021-12-17] MEDS: TOPIRAMATE 25 MG TABLET PO SCH (09:01)
[2021-12-17] MEDS: TAMSULOSIN HCL 0.4 MG CAP PO SCH (09:01)
[2021-12-17 11:32] VITALS: BP 97/70; PULSE 78; TEMP 98.2
== END 2021-12-17 14:25 | disposition home or self-care (01) | DRG 465 ==
LOC: JER 11:10 → JERBED 16:33 → J5S 12-15 03:54
PROVIDERS: ADMIT Internal Medicine; ATTEND Internal Medicine
DX: N20.0 Calculus of kidney (principal); R31.29 Other microscopic hematuria; J45.909 Unspecified asthma, uncomplicated; G43.809 Other migraine, not intractable, without status migrainosus; F39 Unspecified mood [affective] disorder
CPT/HCPCS: 36415; 74176-TC; 76830-TC; 80053; 81003; 83735; 84100; 84703; 85025; 85610; 85730; 87086; 93005; 93010; 99285-25; C9803-CS; U0003; U0005

== ENCOUNTER 2022-04-11 07:45 | Emergency (ER) | payer OTHER ==
[2022-04-11 07:54] VITALS: TEMP 97.8; BMI 30.2
[2022-04-11] MEDS ORDERED: IBUPROFEN 400 MG TABLET (FP) PO ONE ×2 (08:07→08:54)
[2022-04-11 09:11] LABS: BASO % 0.3 % (0-2.0); EOS % 0.8 % (0-4.5); HEMATOCRIT 40.8 % (32.4-45.2); LYMPH % 15.2 % (8-40); MCH 32.5 pg (25.7-33.7); MCHC 34.2 g/dl (32.0-36.0); MEAN CELL VOLUME 95.1 fl (80-96); MEAN PLT VOLUME 7.9 fl (7.5-11.1); MONO % 3.1 % (3.8-10.2); NEUT % 80.6 % (42.8-82.8); PLATELET COUNT 257 10^3/uL (134-434); RBC 4.29 M/mm3 (3.60-5.2); RDW 12.4 % (11.6-15.6); WHITE BLOOD COUNT 8.2 K/mm3 (4.0-10.0)
[2022-04-11 09:24] LABS: HCG,QUALITATIVE URINE Negative
[2022-04-11 09:25] LABS: EPI CELLS >36 /uL (0-25.1); HYALINE CASTS 2 /uL (0-3.1); PH,URINE 5.5 (5.0-8.0); URINE APPEARANCE CLOUDY; URINE BACTERIA 272 /uL (0-1359); URINE BILIRUBIN NEGATIVE (NEGATIVE); URINE COLOR YELLOW; URINE GLUCOSE (UA) NEGATIVE (NEGATIVE); URINE KETONE NEGATIVE (NEGATIVE); URINE LEUK ESTERASE NEGATIVE (NEGATIVE); URINE NITRITE NEGATIVE (NEGATIVE); URINE PROTEIN TRACE (NEGATIVE); URINE RBC 2026 /uL (0-23.9); URINE UROBILINOGEN 0.2 mg/dL (0.2-1.0); URINE WBC 28 /uL (0-25.8)
[2022-04-11 09:29] LABS: ALBUMIN 3.8 g/dl (3.4-5.0); BLOOD UREA NITROGEN 18.1 mg/dL (7-18)
[2022-04-11 09:32] LABS: CREATININE 0.7 mg/dL (0.55-1.3); TOT PROT 7.6 g/dl (6.4-8.2)
[2022-04-11 09:33] LABS: BILIRUBIN,TOTAL 0.4 mg/dL (0.2-1)
[2022-04-11] MEDS ORDERED: ACETAMINOPHEN 325 MG TABLET (FP) PO ONE (10:12)
[2022-04-11] MEDS ORDERED: ACETAMINOPHEN 325 MG TABLET (FP) ONE (10:56)
[2022-04-11 11:07] VITALS: BP 109/57; PULSE 67; RESP 16
== END 2022-04-11 11:17 | disposition home or self-care (01) ==
LOC: JER 07:45
DX: N20.0 Calculus of kidney (principal)
CPT/HCPCS: 36415; 76775-TC; 80053; 81003; 84703; 85025; 87086; 87186; 99284-25